=== PATIENT | male | born 1940 | race Caucasian/White ===

== ENCOUNTER 2017-09-27 13:12 | Emergency (ER) | payer MEDICARE, MEDICAID ==
[2017-09-27] MEDS ORDERED: EPINEPHrine 1:10,000 1 MG/10 ML Syringe IV ONE (13:13)
[2017-09-27] MEDS ORDERED: Atropine 0.1 MG/ML 10 ML Syringe IV ONE (13:13)
[2017-09-27] MEDS ORDERED: EPINEPHrine 1 MG/1 ML Amp IV ONE (13:13)
[2017-09-27] MEDS ORDERED: Sodium Bicarbonate 8.4% 50 MEQ/50 ML Syringe IV ONE (13:13)
[2017-09-27] MEDS ORDERED: Sodium Chloride 0.9% 1,000 ML IV ONE (13:20)
[2017-09-27] MEDS ORDERED: EPINEPHrine 1 MG/ML 30 ML MDV IVPUSH ONE (13:21)
[2017-09-27] MEDS ORDERED: Sodium Bicarbonate 8.4% 50 MEQ/50 ML Syringe IVPUSH ONE (13:22)
[2017-09-27] MEDS ORDERED: EPINEPHrine 1 MG in Dextrose 5% in Water 99 ML IV SCH ×4 (13:30→13:35)
[2017-09-27] MEDS ORDERED: Atropine 0.4 MG/ML SDV IVPUSH ONE (13:31)
[2017-09-27 13:45] LABS: CHLORIDE,CL 109 mmol/L (98-110); SODIUM,NA 138 mmol/L (136-146)
--- NOTE | 2017-09-27 13:51 | EDM.PDOC ---
ED HPI GENERAL MEDICAL PROBLEM - General Chief Complaint: CPR in Progress Stated Complaint: UNK Time Seen by Provider: 09/27/17 13:18 - History of Present Illness INITIAL COMMENTS - FREE TEXT/NARRATIVE: HISTORY AND PHYSICAL: History of present illness: Please note that the patient's arrival time to the ED and my evaluation began at 13 12 PM not 1318 as is the registration time. The patient is a 77 y/o male who lives in a [place] [facility] and has a history of hepatitis B organic personality syndrome hypertension and hearing impairment who had a witnessed respiratory arrest after choking on hotdog and macaroni and cheese. The paramedics were called at 1223 and arrived on scene at 1228 and patient at that time had no pulse and was asystolic. CPR was started and the patient was intubated and the hotdog was removed from the airway. Patient was bagged with oxygen as he had no spontaneous breathing and initially paramedics had called in because they were going to stop CPR as they had never gotten a pulse and were asystolic but then told me that they thought they saw an organized rhythm and brought the patient here. He arrived here at 13 12 PM and on arrival he was having agonal beats in an agonal rhythm and had no pulse. CPR was started and pulse was retained after epi was given in the ED. The patient waxed and waned with his pulse and was never able to maintain it. Please see the code sheet for further information regarding medication administration and care plan throughout the course of the code. Review of systems: As per history of present illness and below otherwise all systems reviewed and negative. Past medical history: As per history of present illness and as reviewed below otherwise noncontributory. Surgical history: As per history of present illness and as reviewed below otherwise noncontributory. Social history: No reported history of drug or alcohol abuse. Family history: As per history of present illness and as reviewed below otherwise noncontributory. Physical exam: Gen.: Overweight male who is unresponsive and occasionally would exhibit an agonal breath. Please note vitals include she HEENT: Atraumatic, normocephalic, pupils are pinpoint and nonreactive, negative for conjunctival pallor or scleral icterus, mucous membranes dry neck supple, nontender, trachea midline. Lungs: Coarse breath sounds bilaterally with ET tube bagging, , breath sounds equal bilaterally, chest nontender. There is no crepitus or deformities of the chest wall Heart: Initially no heart sounds were auscultated Abdomen: Soft, nondistended, nontender. Negative for masses or hepatosplenomegaly. Pelvis: Stable nontender. Genitourinary: Deferred. Rectal: Deferred. Extremiities; atraumatic without any soft tissue swelling or bony deformities. They are pale and cool to touch throughout Skin: No evidence of any rashes or lesions but pale and cool throughout no diaphoresis appreciated Neuro: Cannot be ascertained as the patient is unresponsive and intubated area he has no spontaneous movement and only an occasional agonal breath sound is appreciated at the beginning of our evaluation Diagnostics: EKG CBC CMP INR troponin Therapeutics: IV O2 monitor IV fluids epinephrine drip, please see code sheet for remainder of therapeutics and interventions Please note that throughout the course of this patient's care he initially was asystolic without a pulse and then seem to have a thready pulse with a organized rhythm in the 30s which then went up to the 70s or 80s after epinephrine was given here. Patient continue to hold pulse and then lose pulse as the epinephrine wore off so an epinephrine drip was placed. I reviewed his stat portable chest x-ray which showed a small left-sided pneumothorax and after Betadine prep was performed at the left infraclavicular area the chest wall was needled with a 16-gauge Angiocath which may have been too short as it was only 1-1/4 inches so a second 3 inch 16-gauge Angiocath was placed without any gush of air or change in the patient's rhythm or status. At this point it is not believed that the small pneumothorax is triggering the patient's asystole so a chest tube was not placed. At this point the patient had no pulse and was only having several agonal beats so the code was terminated at 1337. The director social service and caregiver at the [place] [facility] were both informed and are aware of the efforts and are appreciative. Critical care time excluding procedures: 40min Impression: Choking episode followed by respiratory and cardiac arrest unsalvageable Definitive disposition and diagnosis as appropriate pending reevaluation and review of above. ED ROS GENERAL - Review of Systems Review Of Systems: ROS reveals no pertinent complaints other than HPI. ED EXAM, GENERAL - Physical Exam Exam: See Below (See dictation) Course - Orders/Labs/Meds Orders: Active Orders 24 hr Category Date Time Status Cardiac Monitoring [RC] . DIRECTED Care 09/27/17 13:18 Active EKG Documentation Completion [RC] STAT Care 09/27/17 13:18 Active Pulse Oximetry [RC] ASDIRECTED Care 09/27/17 13:18 Active Chest 1V Frontal [CR] Stat Exams 09/27/17 13:18 Ordered COMPREHENSIVE METABOLIC PN,CMP [CHEM] Stat Lab 09/27/17 13:18 Ordered TROPONIN I [CHEM] Stat Lab 09/27/17 13:18 Ordered EPINEPHrine [Adrenalin] 1 mg Med 09/27/17 13:30 Active Dextrose 5% in Water 99 ml IV TITRATE Saline Lock Insert [OM.PC] Stat Oth 09/27/17 13:18 Ordered Medication Orders Epinephrine HCl 1 mg/ Dextrose (/Water) 100 mls @ 60 mls/hr IV TITRATE DAQUAN; 0.1 MCG/KG/MIN PRN Reason: Protocol Labs: Laboratory Tests 09/27/17 09/27/17 Range/Units 13:18 13:18 WBC 13.78 H (4.0-11.0) K/uL RBC 2.78 L (4.50-5.90) M/uL Hgb 7.8 L (13.0-17.0) g/dL Hct 24.5 L (38.0-50.0) % MCV 88.1 (80.0-98.0) fL MCH 28.1 (27.0-32.0) pg MCHC 31.8 (31.0-37.0) g/dL RDW Std Deviation 46.6 (28.0-62.0) fl RDW Coeff of Kaiden 15 (11.0-15.0) % Plt Count 103 L (150-400) K/uL MPV 9.80 (7.40-12.00) fL Neut % (Auto) 60.4 (48.0-80.0) % Lymph % (Auto) 31.6 (16.0-40.0) % Vigo % (Auto) 6.6 (0.0-15.0) % Eos % (Auto) 1.2 (0.0-7.0) % Baso % (Auto) 0.2 (0.0-1.5) % Neut # (Auto) 8.3 H (1.4-5.7) K/uL Lymph # (Auto) 4.4 H (0.6-2.4) K/uL Vigo # (Auto) 0.9 H (0.0-0.8) K/uL Eos # (Auto) 0.2 (0.0-0.7) K/uL Baso # (Auto) 0.0 (0.0-0.1) K/uL Nucleated RBC % 0.3 /100WBC Nucleated RBCs # 0 K/uL INR 1.60 H (0.86-1.11) Meds: Medications Generic Name Dose Route Start Last Admin Trade Name Freq PRN Reason Stop Dose Admin Epinephrine HCl 1 mg/ Dextrose 100 mls @ 60 mls/hr 09/27/17 13:30 /Water IV TITRATE DAQUAN Protocol 0.1 MCG/KG/MIN Departure - Departure Time of Disposition: 13:40 Disposition: 20 Clinical Impression: Respiratory arrest, Cardiac arrest - Discharge Information Referrals: PCP,None [Primary Care Provider] - - My Orders Last 24 Hours: My Active Orders 09/27/17 13:30 EPINEPHrine [Adrenalin] 1 mg Dextrose 5% in Water 99 ml IV TITRATE - Assessment/Plan Last 24 Hours: My Active Orders 09/27/17 13:30 EPINEPHrine [Adrenalin] 1 mg Dextrose 5% in Water 99 ml IV TITRATE
--- NOTE | 2017-09-27 13:55 | PCM.SN ---
- Free Text/Narrative Note: Called for "code blue". Pt arrived intubated after witnessed choking/possible cardiac arrest. Tube placement verified and CPR continued. Inline suction with small amount blood return. Pt coded for several minutes with futile sustained rhythm and pulse. Anesthesia assisted in code with respirations and assessments.
--- NOTE | 2017-09-28 20:25 | CR ---
EXAM DATE: 09/27/17 PATIENT'S AGE: 77 Patient: DEBBIE BREAUX Facility: [place], [place] Site . Site : [id number] Study: XRay Chest [id number] 1:30:25 PM Ordering Physician: Doctor Salgado Final Report: HISTORY: Recent intubation. Findings: An endotracheal tube is present with the tip in the midtrachea. There is an elevated right hemidiaphragm with hazy opacity throughout both lung martins which could potentially be artifactual but could also represent a diffuse process such as mild interstitial edema. No pneumothorax is seen. Cardiac silhouette size within normal limits. Impression: Endotracheal tube placement as discussed. Dictated by Casey Miller MD @ Sep 27 2017 1:36PM (Electronic Signature) Report Signed by Proxy. NATALIE
== END 2017-09-27 14:41 | disposition expired ==
LOC: MW.ED 13:12
DX: I46.9 Cardiac arrest, cause unspecified (principal); R09.2 Respiratory arrest
CPT/HCPCS: 36415; 71045; 80053; 84484; 85025; 85610; 92950; 93005; 99285; J0171; J0461; J7040; J7060